=== PATIENT | female | born 1985 | race Hispanic/Latino ===

== ENCOUNTER 2021-02-18 11:45 | Day surgery (SDC) | payer MEDICAID, SELFPAY ==
[2021-02-18 12:33] VITALS: BMI 35.8
[2021-02-18] MEDS ORDERED: hydrALAZINE 20 MG/ML VIAL SLOW IVP PRN (12:46)
== END 2021-02-18 16:15 | disposition home or self-care (01) ==
LOC: CSHLD/OP 11:45
PROVIDERS: ATTEND Family Medicine
DX: O44.32 Partial placenta previa with hemorrhage, second trimester (principal); O99.891 Other specified diseases and conditions complicating pregnancy; N89.8 Other specified noninflammatory disorders of vagina; R10.2 Pelvic and perineal pain; O99.012 Anemia complicating pregnancy, second trimester; D50.9 Iron deficiency anemia, unspecified; Z3A.21 21 weeks gestation of pregnancy
CPT/HCPCS: 76815

== ENCOUNTER 2021-05-03 16:23 | Inpatient (IN) | payer MEDICAID, SELFPAY ==
[2021-05-03] MEDS ORDERED: hydrALAZINE 20 MG/ML VIAL SLOW IVP PRN ×3 (17:50→22:22)
[2021-05-03 18:04] LABS: Bilirubin Neg (Negative); Blood, Urine 250 (Negative); Clarity Clear (Clear); Glucose, Urine (Dipstick) Normal (Negative); Ketone, Urine 150 mg/dL (Negative); Leukocyte Negative (Negative); Nitrite Negative (Negative); Protein, Urine (Dipstick) 30 mg/dl (Neg-Trace); Specific Gravity, Urine 1.015 (1.002-1.036); Urobilinogen Normal mg/dL (Less than 2)
[2021-05-03 18:14] LABS: Squamous Epithelial 0-3 HPF (0-3); WBC/HPF 0-3 HPF (0-3)
[2021-05-03] MEDS ORDERED: Lactated Ringer's 1,000 ML IV SCH (18:15)
[2021-05-03 18:16] LABS: Bacteria/HPF Rare-Few HPF (None Seen); Mucous/LPF Rare LPF (<2+)
[2021-05-03 18:17] LABS: Transitional Epithelial 0-3 HPF (None Seen)
[2021-05-03 18:55] LABS: FFN Internal QC Analyzer PASS (PASS); FFN Internal QC Cassette PASS (PASS); Fetal Fibronectin Negative (Negative)
[2021-05-03] MEDS ORDERED: cefTRIAXone\\ROCEPHIN 1 GM in Sodium Chloride 0.9% 100 ML IVPB SCH (19:30)
[2021-05-03 19:37] LABS: Fetal Membranes Rupture No Membranes Rupture (No Rupture)
[2021-05-03] MEDS: metroNIDAZOLE 500 MG TAB PO SCH (20:12)
[2021-05-03 21:02] LABS: ALT (SGPT) 8 U/L (8-55); AST (SGOT) 15 U/L (5-34); Alkaline Phosphatase 121 U/L (40-110); Anion Gap 14 mmol/L (10-20); BUN (Urea Nitrogen) 9 mg/dL (7.0-18.7); Bilirubin, Total 0.4 mg/dL (0.2-1.2); Calc. Creatinine Clearance 0 mL/min (70-130); Calcium 8.7 mg/dL (7.8-10.44); Carbon Dioxide 21 mmol/L (22-29); Chloride 106 mmol/L (98-107); Globulin 3.4 g/dL (2.4-3.5); Glucose 83 mg/dL (70-105); Potassium 3.9 mmol/L (3.5-5.1); Protein, Total 6.4 g/dL (6.0-8.3); Sodium 137 mmol/L (136-145)
[2021-05-03 21:03] LABS: #Eosinphils 0.2 10x3/uL (0.0-0.5); #Monocytes 0.4 10x3/uL (0.0-1.1); #Neutrophils 11.5 10x3/uL (1.5-8.4); %Basophils 0.2 % (0.0-2.0); %Eosinophils 1.4 % (0.0-6.0); %Lymphocytes 7.8 % (18.0-47.0); %Monocytes 3.2 % (0.0-10.0); %Neutrophils 86.9 % (40.0-75.0); Hemoglobin 11.3 g/dL (12.0-15.5); Mean Corpuscular HGB CONC 32.6 g/dL (32.0-36.0); Mean Corpuscular Hemoglobin 29.7 pg (27.0-33.0); Mean Corpuscular Volume 91.3 fl (81.6-98.3); Mean Platelet Volume 10.7 fl (7.4-10.4); Platelet Count 247 10x3/uL (150-450); RBC Distribution Width 13.3 % (11.5-14.5); White Blood Cell (WBC) Count 13.2 10x3/uL (3.5-10.5)
[2021-05-03] MEDS ORDERED: Calcium Gluc 4.6 MEQ/10 ML (100 MG/ML) SLOW IVP PRN (22:19)
[2021-05-03] MEDS ORDERED: Promethazine HCl 25 MG/ML VIAL IM PRN (22:22)
[2021-05-03] MEDS ORDERED: Penicillin G Potassium 5 MILL.UNITS in Sodium Chloride 0.9% 100 ML IVPB SCH (22:30)
[2021-05-03] MEDS ORDERED: Magnesium Sulfate 20 GM/WATER 500 ML BAG IVPB SCH (22:30)
[2021-05-03] MEDS: Betamet Acet/Betamet Na Ph 30 MG/5 ML VIAL IM SCH (23:02)
[2021-05-03] MEDS: Dextrose 5%-Lactated Ringers 1,000 ML IV SCH (23:24)
[2021-05-03] MEDS: Magnesium Sulfate 20 gm/500 ml 20 GM/500 ML BAG IVPB SCH (23:32)
[2021-05-03] MEDS: Ondansetron PF 4 MG/2 ML Vial IVP PRN (23:50)
[2021-05-04 00:14] LABS: Creatinine, Urine 62.85 mg/dL (47-110)
[2021-05-04 00:37] VITALS: BMI 27.6
[2021-05-04 01:30] LABS: SARS-CoV-2 NAA Rapid Test Not Detected (NotDetected)
[2021-05-04] MEDS: Penicillin G 2.5 MILL.units 2.5 MILL.UNITS in Premix Bag 1 BAG IVPB SCH ×7 (03:22→23:19)
[2021-05-04] MEDS ORDERED: Butorphanol Tartrate 1 MG/ML VIAL SLOW IVP PRN (03:24)
[2021-05-04] MEDS ORDERED: Butorphanol Tartrate 1 MG/ML VIAL ONE (03:31)
[2021-05-04] MEDS: Magnesium Sulfate 20 gm/500 ml 20 GM/500 ML BAG IVPB SCH (07:37)
[2021-05-04] MEDS: Dextrose 5%-Lactated Ringers 1,000 ML IV SCH ×2 (08:00→18:00)
[2021-05-04 08:21] LABS: HIV (1/2) Antibody/Antigen Non-Reactive (NonReactive); Hep B Surf Ag Non-Reactive S/CO (NonReactive); Syphilis Antibody Nonreactive (Nonreactive); Syphilis Antibody Index 0.04 S/CO (<1.00 Non-Reactive)
[2021-05-04 08:37] LABS: HBSAg Index 0.18 S/CO (0-0.99)
[2021-05-04 10:49] LABS: Magnesium 7.1 mg/dL (1.6-2.6)
[2021-05-04] MEDS: metroNIDAZOLE 500 MG TAB PO SCH ×2 (10:54→21:00)
[2021-05-04] MEDS: Ondansetron PF 4 MG/2 ML Vial IVP PRN (12:25)
[2021-05-04] MEDS ORDERED: Magnesium Sulfate 20 gm/500 ml 20 GM/500 ML BAG IVPB SCH (12:50)
[2021-05-04] MEDS ORDERED: Acetaminophen 500 MG TAB PO SCH (16:30)
[2021-05-04 16:43] LABS: Magnesium 6.6 mg/dL (1.6-2.6)
[2021-05-04] MEDS ORDERED: Fosfomycin 3 GM/Packet PO SCH (21:00)
[2021-05-04] MEDS: Betamet Acet/Betamet Na Ph 30 MG/5 ML VIAL IM SCH (23:19)
[2021-05-05] MEDS: Penicillin G 2.5 MILL.units 2.5 MILL.UNITS in Premix Bag 1 BAG IVPB SCH ×2 (03:32→08:19)
[2021-05-05] MEDS: metroNIDAZOLE 500 MG TAB PO SCH ×2 (10:51→22:04)
[2021-05-05] MEDS: Prenatal Vitamin 1 TAB PO SCH (10:52)
[2021-05-05] MEDS: Acetaminophen 325 MG TAB PO PRN (13:01)
[2021-05-06] MEDS ORDERED: Methylergonovine 0.2 MG/ML VIAL ONE (01:04)
[2021-05-06] MEDS ORDERED: Misoprostol 200 MCG TAB ONE (01:04)
[2021-05-06] MEDS: Acetaminophen 325 MG TAB PO PRN (08:10)
[2021-05-06] MEDS: metroNIDAZOLE 500 MG TAB PO SCH ×2 (11:33→22:18)
[2021-05-07] MEDS: metroNIDAZOLE 500 MG TAB PO SCH ×2 (09:37→22:20)
[2021-05-07] MEDS: Prenatal Vitamin 1 TAB PO SCH ×2 (09:37→23:26)
[2021-05-07 21:03] LABS: Chlamydia by PCR Inconclusive (NotDetected); GC by PCR Inconclusive (NotDetected)
[2021-05-07] MEDS: Dextrose 5%-Lactated Ringers 1,000 ML IV SCH ×2 (23:25→23:26)
[2021-05-08 08:23] LABS: ALT (SGPT) 19 U/L (8-55); AST (SGOT) 20 U/L (5-34); Albumin 2.9 g/dL (3.5-5.0); Alkaline Phosphatase 123 U/L (40-110); Anion Gap 14 mmol/L (10-20); BUN (Urea Nitrogen) 11 mg/dL (7.0-18.7); Bilirubin, Total 0.3 mg/dL (0.2-1.2); Calc. Creatinine Clearance 132 mL/min (70-130); Calcium 8.7 mg/dL (7.8-10.44); Carbon Dioxide 21 mmol/L (22-29); Chloride 104 mmol/L (98-107); Globulin 3.4 g/dL (2.4-3.5); Glucose 102 mg/dL (70-105); Potassium 4.3 mmol/L (3.5-5.1); Protein, Total 6.3 g/dL (6.0-8.3); Sodium 135 mmol/L (136-145)
[2021-05-08] MEDS ORDERED: diphenhydrAMINE 25 MG CAP PO PRN (08:45)
[2021-05-08] MEDS: Prenatal Vitamin 1 TAB PO SCH (09:10)
[2021-05-08] MEDS: metroNIDAZOLE 500 MG TAB PO SCH ×2 (09:10→21:57)
[2021-05-08] MEDS: hydrOXYzine 25 MG TAB PO PRN ×2 (16:00→21:57)
[2021-05-08] MEDS: Dextrose 5%-Lactated Ringers 1,000 ML IV SCH (18:31)
[2021-05-09] MEDS: metroNIDAZOLE 500 MG TAB PO SCH ×2 (08:32→21:11)
[2021-05-09] MEDS: Prenatal Vitamin 1 TAB PO SCH (08:32)
[2021-05-10] MEDS: Prenatal Vitamin 1 TAB PO SCH (10:59)
[2021-05-10] MEDS: metroNIDAZOLE 500 MG TAB PO SCH ×2 (10:59→21:28)
[2021-05-10] MEDS: Penicillin G 2.5 MILL.units 2.5 MILL.UNITS in Premix Bag 1 BAG IVPB SCH (19:50)
[2021-05-11 05:01] LABS: Chlamydia by PCR Not Detected (NotDetected); GC by PCR Not Detected (NotDetected)
[2021-05-11] MEDS: Prenatal Vitamin 1 TAB PO SCH (08:48)
[2021-05-11 17:27] LABS: SARS-CoV-2 PCR by NAA DETECTED (NotDetected)
[2021-05-12] MEDS: Prenatal Vitamin 1 TAB PO SCH (08:35)
[2021-05-13] MEDS: Prenatal Vitamin 1 TAB PO SCH (09:58)
[2021-05-14] MEDS: Prenatal Vitamin 1 TAB PO SCH (09:22)
[2021-05-15 05:59] LABS: ALT (SGPT) 10 U/L (8-55); AST (SGOT) 10 U/L (5-34); Albumin 2.6 g/dL (3.5-5.0); Alkaline Phosphatase 125 U/L (40-110); Anion Gap 13 mmol/L (10-20); BUN (Urea Nitrogen) 13 mg/dL (7.0-18.7); Bilirubin, Total 0.3 mg/dL (0.2-1.2); Calc. Creatinine Clearance 126 mL/min (70-130); Calcium 8.6 mg/dL (7.8-10.44); Carbon Dioxide 21 mmol/L (22-29); Chloride 108 mmol/L (98-107); Globulin 3.1 g/dL (2.4-3.5); Glucose 88 mg/dL (70-105); Protein, Total 5.7 g/dL (6.0-8.3); Sodium 138 mmol/L (136-145)
[2021-05-15 06:20] LABS: #Eosinphils 0.3 10x3/uL (0.0-0.5); #Monocytes 0.7 10x3/uL (0.0-1.1); #Neutrophils 5.4 10x3/uL (1.5-8.4); %Basophils 0.3 % (0.0-2.0); %Eosinophils 2.6 % (0.0-6.0); %Lymphocytes 33.9 % (18.0-47.0); %Monocytes 7.3 % (0.0-10.0); %Neutrophils 54.8 % (40.0-75.0); Hemoglobin 9.4 g/dL (12.0-15.5); Mean Corpuscular HGB CONC 31.6 g/dL (32.0-36.0); Mean Corpuscular Hemoglobin 29.5 pg (27.0-33.0); Mean Corpuscular Volume 93.1 fl (81.6-98.3); Mean Platelet Volume 10.8 fl (7.4-10.4); Platelet Count 303 10x3/uL (150-450); RBC Distribution Width 13.8 % (11.5-14.5); Red Blood Cell (RBC) Count 3.19 10x6/uL (3.90-5.03); White Blood Cell (WBC) Count 9.8 10x3/uL (3.5-10.5)
[2021-05-15] MEDS: Prenatal Vitamin 1 TAB PO SCH (08:23)
[2021-05-15] MEDS ORDERED: Milk Of Magnesia 30 ML UDCUP PO PRN (09:29)
[2021-05-15] MEDS ORDERED: Polyethylene Glycol 3350 17 GM Packet PO PRN (09:29)
[2021-05-15] MEDS ORDERED: Famotidine 20 MG TAB PO PRN (09:29)
[2021-05-15] MEDS ORDERED: Ferrous Gluconate 324 MG TAB PO SCH (10:00)
[2021-05-15 13:20] LABS: Hep C IgG Ab Non-Reactive (NonReactive); Hep C Index 0.06 S/CO (0-0.79)
[2021-05-16] MEDS: Prenatal Vitamin 1 TAB PO SCH (09:58)
[2021-05-16] MEDS: Ferrous Gluconate 324 MG TAB PO SCH (09:58)
[2021-05-17] MEDS: Ferrous Gluconate 324 MG TAB PO SCH (09:21)
[2021-05-17] MEDS: Prenatal Vitamin 1 TAB PO SCH (09:21)
[2021-05-18 08:58] VITALS: BP 110/76; TEMP 97.8
[2021-05-18] MEDS: Prenatal Vitamin 1 TAB PO SCH (08:58)
[2021-05-18] MEDS: Ferrous Gluconate 324 MG TAB PO SCH (08:58)
== END 2021-05-18 13:40 | disposition home or self-care (01) | DRG 831 ==
LOC: CSHLD/OP 16:23 → CSHLD 22:27 → CSHANTE 05-08 18:00
PROVIDERS: ADMIT Emergency Medicine; ATTEND Emergency Medicine
PROC: 8E0ZXY6 Isolation (ICD-10-PCS; principal; 2021-05-03)
DX: O60.03 Preterm labor without delivery, third trimester (principal); U07.1 COVID-19; O98.513 Other viral diseases complicating pregnancy, third trimester; O23.43 Unspecified infection of urinary tract in pregnancy, third trimester; N39.0 Urinary tract infection, site not specified; O98.213 Gonorrhea complicating pregnancy, third trimester; A54.02 Gonococcal vulvovaginitis, unspecified; O76 Abnormality in fetal heart rate and rhythm complicating labor and delivery; O99.02 Anemia complicating childbirth; D50.9 Iron deficiency anemia, unspecified; Z3A.32 32 weeks gestation of pregnancy; Z79.899 Other long term (current) drug therapy; Z86.16 Personal history of COVID-19; Z87.440 Personal history of urinary (tract) infections
CPT/HCPCS: 36415; 76815; 76816; 76819; 80053; 81001; 82239; 82570; 82731; 83735; 84112; 84145; 84156; 85025; 86140; 86780; 86803; 86850; 86900; 86901; 87081; 87340; 87389; 87480; 87491; 87510; 87591; 87660; J0595; J0696; J0702; J2405; J2540; J3475; J3490; J7120; U0002; U0003; U0005

== ENCOUNTER 2021-06-06 05:30 | Inpatient (IN) | payer MEDICAID, OTHER ==
[2021-06-06] MEDS ORDERED: Ibuprofen 800 MG TAB PO PRN (06:26)
[2021-06-06] MEDS ORDERED: hydrALAZINE 20 MG/ML VIAL SLOW IVP PRN ×2 (06:26→16:17)
[2021-06-06] MEDS ORDERED: Promethazine HCl 25 MG/ML VIAL IM PRN (06:26)
[2021-06-06] MEDS ORDERED: Lidocaine 1% (PF) 30 ML VIAL SC PRN (06:26)
[2021-06-06] MEDS ORDERED: Ondansetron PF 4 MG/2 ML Vial IVP PRN ×2 (06:26→16:17)
[2021-06-06] MEDS ORDERED: NS w/ Oxytocin 30 units 500 ML IV SCH ×3 (06:30→16:17)
[2021-06-06] MEDS ORDERED: Lactated Ringer's 1,000 ML IV SCH (06:30)
[2021-06-06 06:48] LABS: Hemoglobin 10.7 g/dL (12.0-15.5); Mean Corpuscular HGB CONC 33.1 g/dL (32.0-36.0); Mean Corpuscular Hemoglobin 30.3 pg (27.0-33.0); Mean Corpuscular Volume 91.5 fl (81.6-98.3); Mean Platelet Volume 11.5 fl (7.4-10.4); Platelet Count 245 10x3/uL (150-450); RBC Distribution Width 16.1 % (11.5-14.5); Red Blood Cell (RBC) Count 3.53 10x6/uL (3.90-5.03); White Blood Cell (WBC) Count 9.4 10x3/uL (3.5-10.5)
[2021-06-06 07:14] LABS: Syphilis Antibody Nonreactive (Nonreactive); Syphilis Antibody Index 0.03 S/CO (<1.00 Non-Reactive)
[2021-06-06 07:16] LABS: Hep B Surf Ag Non-Reactive S/CO (NonReactive)
[2021-06-06 07:26] LABS: HBSAg Index 0.15 S/CO (0-0.99)
[2021-06-06] MEDS ORDERED: Butorphanol Tartrate 1 MG/ML VIAL ONE (12:52)
[2021-06-06] MEDS ORDERED: diphenhydrAMINE 25 MG CAP PO PRN (16:17)
[2021-06-06] MEDS ORDERED: Butorphanol Tartrate 1 MG/ML VIAL SLOW IVP PRN (16:17)
[2021-06-06] MEDS ORDERED: Bisacodyl 10 MG SUPP PR PRN (16:17)
[2021-06-06] MEDS ORDERED: Lanolin Ointment 7 GM TUBE TOP PRN (16:17)
[2021-06-06] MEDS ORDERED: Milk Of Magnesia 30 ML UDCUP PO PRN (16:17)
[2021-06-06] MEDS ORDERED: Boostrix 0.5 ML (Tdap) VIAL IM ONE (16:17)
[2021-06-06] MEDS ORDERED: Preparation H Ointment 28 GM TUBE PR PRN (16:17)
[2021-06-06] MEDS: Ferrous Sulfate 325 MG TAB PO SCH (19:09)
[2021-06-06] MEDS: Ibuprofen 800 MG TAB PO SCH (21:17)
[2021-06-06] MEDS: Docusate 100 MG CAP PO SCH (21:17)
[2021-06-07] MEDS: Ibuprofen 800 MG TAB PO SCH ×3 (05:18→22:08)
[2021-06-07] MEDS: Ferrous Sulfate 325 MG TAB PO SCH ×2 (07:51→18:59)
[2021-06-07] MEDS: Prenatal Vitamin 1 TAB PO SCH (08:01)
[2021-06-07] MEDS: Docusate 100 MG CAP PO SCH ×2 (08:01→22:08)
[2021-06-08] MEDS: Ibuprofen 800 MG TAB PO SCH ×2 (05:40→13:35)
[2021-06-08 07:44] VITALS: BP 112/68; TEMP 98.4
[2021-06-08] MEDS: Ferrous Sulfate 325 MG TAB PO SCH (11:21)
[2021-06-08] MEDS: Docusate 100 MG CAP PO SCH (11:27)
[2021-06-08] MEDS: Prenatal Vitamin 1 TAB PO SCH (11:27)
== END 2021-06-08 17:35 | disposition home or self-care (01) | DRG 807 ==
LOC: CSHLD 05:31 → CSHPP 14:15
PROVIDERS: ADMIT Family Medicine; ATTEND Family Medicine
PROC: 10E0XZZ Delivery of Products of Conception, External Approach (ICD-10-PCS; principal; 2021-06-06)
PROC: 3E033VJ Introduction of Other Hormone into Peripheral Vein, Percutaneous Approach (ICD-10-PCS; 2021-06-06)
PROC: 10H07YZ Insertion of Other Device into Products of Conception, Via Natural or Artificial Opening (ICD-10-PCS; 2021-06-06)
PROC: 10907ZC Drainage of Amniotic Fluid, Therapeutic from Products of Conception, Via Natural or Artificial Opening (ICD-10-PCS; 2021-06-06)
DX: O69.81X0 Labor and delivery complicated by cord around neck, without compression, not applicable or unspecified (principal); Z37.0 Single live birth; Z3A.37 37 weeks gestation of pregnancy; Z86.16 Personal history of COVID-19; O71.82 Other specified trauma to perineum and vulva
CPT/HCPCS: 85027; 86780; 86850; 86900; 86901; 87340; J0595; J2590